=== PATIENT | female | born 1965 | race Caucasian/White ===

== ENCOUNTER 2016-12-17 16:57 | Emergency (ER) | payer OTHER ==
[~2016-12-17] VITALS: Wt 107.0 kg
[2016-12-17] MEDS ORDERED: METHYLPREDNISOLONE 125 MG INJ IM ONE (19:00)
[2016-12-17] MEDS ORDERED: DIPHENHYDRAMINE 50 MG INJ IM ONE (19:00)
[2016-12-17] MEDS ORDERED: BEN50 PO (19:04)
[2016-12-17] MEDS ORDERED: PRED20TA PO (19:04)
--- NOTE | 2016-12-17 19:15 | ERD ---
ER Documentation Chief Complaint Date/Time DATE: 12/17/16 TIME: 19:13 Chief Complaint generalized rash for the past few days. possible chemical reaction HPI This is a 51-year-old female with a past medical history of diabetes type 2 on metformin presenting to the emergency room complaining of a generalized rash on her abdomen and chest for 3 days. Patient states that it occurred after she used a new type of detergent. She explains the rash as very itchy and causing redness. She has not tried any medications for this. Patient denies fevers. Denies any chest pain or shortness of breath ROS All systems reviewed and are negative except as per history of present illness. Medications Home Meds Active Scripts Diphenhydramine Hcl* (Benadryl*) 50 Mg Cap, 50 MG PO Q6H Y for ITCHING/RASH, # 30 CAP Prov:JAYDA CHAVARRIA PA-C 12/17/16 Prednisone* (Prednisone*) 20 Mg Tab, 40 MG PO DAILY for 4 Days, TAB Prov:JAYDA CHAVARRIA PA-C 12/17/16 Allergies Allergies: Coded Allergies: No Known Allergy (Unverified , 12/17/16) PMhx/Soc History of Surgery: Yes (hernia repair) Anesthesia Reaction: No Hx Neurological Disorder: No Hx Respiratory Disorders: No Hx Cardiac Disorders: No Hx Psychiatric Problems: No Hx Miscellaneous Medical Probl: No (DM, bulging disk.) Hx Alcohol Use: No Hx Substance Use: No Smoking Status: Current every day smoker Physical Exam Vitals Vital Signs Date Time Temp Pulse Resp B/P Pulse Ox O2 Delivery O2 Flow Rate FiO2 12/17/16 17:05 98.0 91 20 137/77 98 Physical Exam General: WD/WN, in no apparent distress, non-toxic appearing HENT: NC/AT Eyes: Conjunctiva normal Neck: Supple Pulm: Clear to auscultation, normal labored breathing; no wheezing/rales/ rhonchi heard CV: Good capillary refill GI: Non-distended, no guarding Back: No masses Ext: No clubbing, cyanosis, or edema Neuro: Moves on all fours Skin: Erythematous papular rash throughout trunk and abdomen Normal turgor, temperature. No ulcerations \ Psych: Normal mood Results 24 hrs Current Medications Medications (Trade) Dose Ordered Sig/Zach Route PRN Reason Start Time Stop Time Status Last Admin Dose Admin Methylprednisolone Sodium Succinate (Solu-Medrol) 125 mg ONCE ONCE IM 12/17/16 19:00 12/17/16 19:01 DC 12/17/16 19:06 Diphenhydramine HCl (Benadryl) 50 mg ONCE ONCE IM 12/17/16 19:00 12/17/16 19:01 DC 12/17/16 19:06 Procedures/MDM This is a 51-year-old female with past medical history diabetes type 2 presenting to the emergency room with a generalized dermatitis on trunk and abdomen most likely due to 2 neurologic reaction. Patient had a low suspicion for anaphylaxis, she is breathing well on room air. There was no evidence of cellulitis or osteomyelitis or the pendulous. In the ED, patient was given 125 mg Solu-Medrol and Benadryl 50 mg IM. Patient had some improvement. Patient given a prescription for prednisone for the next 4 days and Benadryl to take every 6 hours. I discussed with patient to watch her blood sugars due to her diabetes. I discussed her to the ER for any worsening sinuses. Patient understands and agrees with plan. Departure Diagnosis: Primary Impression: Allergic reaction Encounter type: initial encounter Qualified Code: T78.40XA - Allergic reaction, initial encounter Condition: Stable Patient Instructions: First Aid: Allergic Reactions, Dermatitis, Non-Specific, Hives Referrals: your doctor Additional Instructions: FOLLOW UP WITH YOUR PRIMARY CARE PHYSICIAN TOMORROW.Return to this facility if you are not improving as expected. Take all medicines as directed. Return to this facility if you are not improving as expected. You have been given a medicine which may cause drowsiness.DO NOT DRIVE OR OPERATE DANGEROUS MACHINERY while taking this medicine! JAYDA CHAVARRIA PA-C Dec 17, 2016 19:15
== END 2016-12-17 19:26 | disposition home or self-care (01) ==
LOC: FTE 16:57
DX: R21 Rash and other nonspecific skin eruption (principal); E11.9 Type 2 diabetes mellitus without complications; F17.210 Nicotine dependence, cigarettes, uncomplicated; Z79.84 Long term (current) use of oral hypoglycemic drugs
CPT/HCPCS: J1200; J2930; 96372

== ENCOUNTER 2017-01-01 08:50 | Emergency (ER) | payer OTHER ==
[~2017-01-01] VITALS: Wt 100.0 kg
[~2017-01-01 08:50] MED LIST: BEN50 PO; PRED20TA PO
[2017-01-01] MEDS ORDERED: DEXAMETHASONE 10 MG/ML 1 ML INJ IM ONE (10:00)
[2017-01-01] MEDS ORDERED: DIPHENHYDRAMINE 50 MG INJ IM ONE (10:00)
--- NOTE | 2017-01-01 10:10 | ERD ---
ER Documentation Chief Complaint Date/Time DATE: 01/01/17 TIME: 10:08 Chief Complaint RASH SINCE LAST WEEK. WENT AWAY AND CAME BACK NO SOB NOTED HPI This patient is a 51-year-old female with history of type 2 diabetes presenting to the emergency department for intermittent rash to her trunk for the past 1.5 weeks. The patient states she was exposed to a new type of soap and then the rash broke out. The rash resolved but then returned within the past 2 days. The patient reports pruritus. She denies any wheezing or shortness of breath. There have been no fevers or chills. No other signs or symptoms to report at this time. ROS All systems reviewed and are negative except as per history of present illness. Medications Home Meds Active Scripts Diphenhydramine Hcl* (Benadryl*) 25 Mg Cap, 25 MG PO Q6, #20 CAP Prov:BING ARAUZ PA-C 01/01/17 Methylprednisolone* (Medrol* DOSE PACK) 4 Mg/Dose-Pack Tab.ds.pk, 4 MG PO . DIRECTED, #1 PACKET Prov:BING ARAUZ PA-C 01/01/17 Diphenhydramine Hcl* (Benadryl*) 50 Mg Cap, 50 MG PO Q6H Y for ITCHING/RASH, # 30 CAP Prov:JAYDA CHAVARRIA PA-C 12/17/16 Prednisone* (Prednisone*) 20 Mg Tab, 40 MG PO DAILY for 4 Days, TAB Prov:JAYDA CHAVARRIA PA-C 12/17/16 Allergies Allergies: Coded Allergies: No Known Allergy (Unverified , 12/17/16) PMhx/Soc History of Surgery: Yes (hernia repair) Anesthesia Reaction: No Hx Neurological Disorder: No Hx Respiratory Disorders: No Hx Cardiac Disorders: No Hx Psychiatric Problems: No Hx Miscellaneous Medical Probl: No (DM, bulging disk.) Hx Alcohol Use: No Hx Substance Use: No FmHx Noncontributory for chief complaint Physical Exam Vitals Vital Signs Date Time Temp Pulse Resp B/P Pulse Ox O2 Delivery O2 Flow Rate FiO2 01/01/17 08:53 97.2 88 20 116/64 98 Physical Exam INITIAL VITAL SIGNS: Reviewed by me. GENERAL: Alert and interactive. No acute distress. HEAD: Head is normocephalic and atraumatic. EYES: EOMI. No scleral icterus. No conjunctival injection. ENT: Moist mucosa. NECK: Supple. Full range of motion. RESPIRATORY: Normal respiratory effort. Clear breath sounds bilaterally. No wheezing, rales, or rhonchi. CV: Regular rate and rhythm. Normal S1 S2. No S3 or S4. No murmurs. ABDOMEN: Soft, non-distended, non-tender. No guarding. No rebound. No masses. EXTREMITIES: No deformity. SKIN: Nonvesicular macular papular rash to the torso and upper extremities bilaterally. NEUROLOGIC: Alert and oriented x 4. Speech is normal. Moves all extremities equally. No motor or sensory deficits noted. Results 24 hrs Current Medications Medications (Trade) Dose Ordered Sig/Zach Route PRN Reason Start Time Stop Time Status Last Admin Dose Admin Dexamethasone (Decadron) 10 mg ONCE ONCE IM 01/01/17 10:00 01/01/17 10:01 DC 01/01/17 10:10 Diphenhydramine HCl (Benadryl) 25 mg ONCE ONCE IM 01/01/17 10:00 01/01/17 10:01 DC 01/01/17 10:10 Procedures/MDM 51-year-old female presenting secondary to complaints of pruritus and urticaria of the torso and bilateral upper extremities. On physical examination the patient does have a macular papular rash to the torso and bilateral upper extremities. The patient has no wheezing or shortness of breath or retractions. There are no signs of respiratory distress. I treated the patient in the department with IM Decadron and IM Benadryl. The patient was feeling improved after treatment. The patient was given prescriptions to be treated as an outpatient for acute allergic reaction. The patient was advised to return to the department immediately should she have any new or worsening symptoms. The patient demonstrates understanding of her ED course and discharge plan. All questions and concerns were addressed. The patient was hemodynamically stable prior to discharge. Departure Diagnosis: Primary Impression: Rash and other nonspecific skin eruption Condition: Stable Patient Instructions: Self-Care for Skin Rashes Referrals: [facility] Additional Instructions: Follow-up with your primary care physician within 1 week. Return to the emergency department immediately should you have any new or worsening symptoms, uncontrolled fevers, or other unexplained symptoms. Take all medications as directed. BING ARAUZ PA-Cb 3, 2017 10:09
[2017-01-01] MEDS ORDERED: MED4DP PO (10:25)
[2017-01-01] MEDS ORDERED: BEN25 PO (10:25)
== END 2017-01-01 10:57 | disposition home or self-care (01) ==
LOC: FTE 08:50
DX: R21 Rash and other nonspecific skin eruption (principal); E11.9 Type 2 diabetes mellitus without complications
CPT/HCPCS: 96372; J1100; J1200; Z7502

== ENCOUNTER 2017-01-11 13:57 | Emergency (ER) | payer OTHER ==
[~2017-01-11] VITALS: Wt 100.0 kg
[~2017-01-11 13:57] MED LIST changes: +BEN25 PO; +MED4DP PO
--- NOTE | 2017-01-11 15:12 | ERD ---
ER Documentation Chief Complaint Date/Time DATE: 01/11/17 TIME: 14:50 Chief Complaint RASH FOR THE PAST FEW 3 DAYS AGO . NO STRIDOR OR SOB NOTED. HPI 51 y/o female presents to ED for rashes below her breast and left first upper molar tooth pain. Stated that she was here 2 weeks ago and a week ago for complaint of rashes to her below breast and was given/prescribed with prednisone and Benadryl. Denies headache, loss of consciousness, dizziness, blurry vision, changes in vision, photophobia, facial pain, ear pain, throat pain, difficulty swallowing, neck pain, shoulder pain, chest pain, cough, hemoptysis, abdominal pain, back pain, loss of appetite, nausea, vomiting, hematochezia, diarrhea, constipation, urinary symptoms, bladder and bowel incontinences, extremity weakness, extremity tenderness, numbness or tingling sensation, difficulty walking, recent travel, recent exposure to illness, recent antibiotic use in the last 3 months, fever, chills. Allergy: NKA PMH: Diabetes, asthma, bronchitis. Family medical history: Denies. Medications: [place], [place], morphine, pro-air. Surgery: Denies. Primary Social History: On disability. Smokes 1 pack of cigarettes a day. Denies use of alcohol, use of illegal drugs. ROS All systems reviewed and are negative except as per history of present illness. Medications Home Meds Active Scripts Diphenhydramine Hcl* (Benadryl*) 25 Mg Cap, 25 MG PO Q6, #20 CAP Prov:BING ARAUZ PA-C 01/01/17 Methylprednisolone* (Medrol* DOSE PACK) 4 Mg/Dose-Pack Tab.ds.pk, 4 MG PO . DIRECTED, #1 PACKET Prov:BING ARAUZ PA-C 01/01/17 Diphenhydramine Hcl* (Benadryl*) 50 Mg Cap, 50 MG PO Q6H Y for ITCHING/RASH, # 30 CAP Prov:JADYA CHAVARRIA PA-C 12/17/16 Prednisone* (Prednisone*) 20 Mg Tab, 40 MG PO DAILY for 4 Days, TAB Prov:JAYDA CHAVARRIA PA-C 12/17/16 Allergies Allergies: Coded Allergies: No Known Allergy (Unverified , 12/17/16) PMhx/Soc History of Surgery: No Anesthesia Reaction: No Hx Neurological Disorder: No Hx Respiratory Disorders: No Hx Cardiac Disorders: No Hx Psychiatric Problems: No Hx Miscellaneous Medical Probl: No Hx Alcohol Use: No Hx Substance Use: No Hx Tobacco Use: No Physical Exam Vitals Vital Signs Date Time Temp Pulse Resp B/P Pulse Ox O2 Delivery O2 Flow Rate FiO2 01/11/17 14:03 97.8 71 20 158/84 98 Physical Exam CONSTITUTIONAL: Well-appearing; well-nourished; in no apparent distress. HEAD: Normocephalic; atraumatic. EYES: Conjunctiva clear, sclera non-icteric, EOM intact. PERRL Ears: Hearing intact. EACs clear, TMs non-bulging, non-inflamed, translucent & mobile, ossicles normal appearance, No obstructions, no erythema, no discharges Nose: No obstructions. No polyps. No external lesions. Mucosa non-inflamed. No external lesions, septum and turbinates normal. No rhinorrhea. No discharges. Frontal sinus is non-tender to palpation. Maxillary sinus is non-tender to palpation. MOUTH: Moist mucous membranes, no lesion, no obstructions, no vesicles, no thrush, patent airway. Left upper first molar tooth decay/gum swelling with tenderness. Intact. Throat: Uvula in midline. Right tonsil is +1 with no erythema, no exudate. Left tonsil is +1 with no erythema, no exudate. Tolerating secretions well. Good gag reflex. Patent airway. Neck: Supple, without lesions, bruits, or adenopathy. No mass. Thyroid non- enlarged and non-tender to palpation. CHEST: Symmetrical chest. Respirations even and not labored. No retractions noted. CARDIOVASCULAR: Normal S1, S2. RRR. No murmurs, gallops. RESPIRATORY: Normal chest excursion with respiration; breath sounds clear and equal bilaterally; no wheezes, rhonchi, or rales. Breathing even and unlabored. Speaking in clear, full, and complete sentences w/ ease. ABDOMEN: Normal bowel sounds normal. Soft, round, non-distended, non-guarding, no tenderness, no rebound, no organomegaly, no masses, no pulsating abdominal mass. No hernia. No peritoneal signs. : No CVA tenderness. BACK: Symmetrical shoulder. Spine is midline without deformity, tenderness. No evidence of trauma or deformity. PELVIS: Stable pelvis. No evidence of trauma or deformity. MUSCULOSKELETAL: Normal gait and station. No misalignment, asymmetry, crepitation, defects, tenderness, masses, effusions, decreased range of motion, instability, atrophy or abnormal strength or tone in the head, neck, spine, ribs , pelvis or extremities. No calf tenderness. NEUROVASCULAR: Distal pulses are present. Pedal pulse are present, equal, and normal. Capillary refills are < 2 seconds. NEUROLOGIC: Alert and oriented x4. Speaks full and clear sentences. Cranial Nerves II-XII normal. Sensation to pain, touch, and proprioception normal. Grossly unremarkable. No neurologic deficits. Romberg test is negative. PSYCHOLOGICAL: The patients mood and manner are appropriate. No hallucinations , delusions. Not SI. Not HI. Has the capacity to decide for self SKIN: Normal for age and ethnicity; warm; dry; good turgor; no apparent lesions or exudates. No hives, discoloration. Noted satellite lesions to bilateral folds of breasts. Patient stated that it was itchy. Procedures/MDM Examination: Please see physical examination. Disease process, medical treatment was explained to the patient and family member. They verbalized understanding and agreed with the diagnostic tests, medical treatment, and follow-up care. Treatment: None. Re-evaluation: No throat swelling. No airway obstruction. No shortness of breath. Lungs are clear to auscultations. Consultation: None. Differential diagnosis: Tooth abscess versus sinusitis; rash versus candidiasis Medical decision makin51 y/o female presents to ED for rashes below her breast and left first upper molar tooth pain. Stated that she was here 2 weeks ago and a week ago for complaint of rashes to her below breast and was given/ prescribed with prednisone and Benadryl. Patient's complaint, patient's history , my physical findings are consistent with my final diagnosis of toothache, rash. Medications prescribed are the following: Penicillin. Nystatin cream. Patient and family member are made aware of the side effects and adverse reactions of the medications prescribed. Instructed on when to seek emergent and medical attention in case allergic/anaphylactic reactions or severe side effects and or adverse reactions to medications. Patient and family member verbalized understanding. Patient instructed Instructed to follow-up with his PCP in 24-48 hours. Instructed to Call 911 for chest pain, shortness of breath. Advised to come back here in ED as soon as possible for severity of symptoms which includes but not limited to: any new symptoms; shortness of breath/difficulty of breathing; cardiovascular changes; severe gastrointestinal symptoms; signs and symptoms of bleeding and or infection; signs of compartment syndrome/neurovascular changes; neurological changes/deficits. Patient and family member verbalized understanding. Upon discharge, patient is alert and oriented x 4, speaks full and clear sentences, denies pain, has no neurological deficits, has no neurovascular deficits, difficulty of breathing. Breathing even and unlabored. Lung sounds are clear to auscultation. Not in distress. Appears comfortable. Ambulatory with steady gait. Appears satisfied with care provided here in ED. Departure Diagnosis: Primary Impression: Rash Additional Impression: Tooth ache Condition: Good Additional Instructions: Follow-up with PCP in the next 24-48 hours. ZEB HARRISON Jan 11, 2017 15:12
[2017-01-11] MEDS ORDERED: NYST15CR28 TOP (15:13)
[2017-01-11] MEDS ORDERED: PEN500 PO (15:13)
[2017-01-11 15:28] VITALS: BP 124/61; PULSE 58; RESP 16; TEMP 98.2
== END 2017-01-11 15:29 | disposition home or self-care (01) ==
LOC: FTE 13:57
DX: R21 Rash and other nonspecific skin eruption (principal); K08.89 Other specified disorders of teeth and supporting structures; E11.9 Type 2 diabetes mellitus without complications; J45.909 Unspecified asthma, uncomplicated
CPT/HCPCS: 99284

== ENCOUNTER 2017-01-14 14:33 | Emergency (ER) | payer OTHER ==
[~2017-01-14] VITALS: Wt 90.9 kg
[~2017-01-14 14:33] MED LIST changes: +NYST15CR28 TOP; +PEN500 PO
[2017-01-14] MEDS ORDERED: HYDR-842 PO (16:04)
[2017-01-14] MEDS ORDERED: FLUC50TA PO (16:04)
--- NOTE | 2017-01-14 16:10 | ERD ---
ER Documentation Chief Complaint Date/Time DATE: 01/14/17 TIME: 16:08 Chief Complaint unresolved rash x2 wks despite meds HPI Pleasant female who presents to the emergency room with a rash for approximately 2 months. The patient has been here now for times for this rash. 2 of which she was treated for allergic reaction, most recently she was treated with nystatin cream for Elizabeth. She describes a itchy raised rash with satellite lesions in the skin folds along the bra line of her chest and underneath her breasts. She is a diabetic and her sugars have been well controlled. She denies any fevers or chills but she does describe persistence of this rash. ROS All systems reviewed and are negative except as per history of present illness. Medications Home Meds Active Scripts Fluconazole* (Fluconazole*) 50 Mg Tablet, 50 MG PO DAILY for 14 Days, TAB Prov:JIM COLLINS MD 01/14/17 Hydroxyzine Hcl* (Atarax*) 25 Mg Tab, 25 MG PO QID Y for ITCHING, #30 TAB Prov:JIM COLLINS MD 01/14/17 Nystatin* (Nystatin*) 15 Gm Cr, 1 APPLIC TOP TID for 7 Days, TUB Prov:PASILABANKLAR F 01/11/17 Penicillin V Potassium* (Penicillin V K*) 500 Mg Tab, 500 MG PO QID for 10 Days , TAB Prov:PASILABAN,KLAR F 01/11/17 Diphenhydramine Hcl* (Benadryl*) 25 Mg Cap, 25 MG PO Q6, #20 CAP Prov:BING ARAUZ PA-C 01/01/17 Methylprednisolone* (Medrol* DOSE PACK) 4 Mg/Dose-Pack Tab.ds.pk, 4 MG PO . DIRECTED, #1 PACKET Prov:BING ARAUZ PA-C 01/01/17 Diphenhydramine Hcl* (Benadryl*) 50 Mg Cap, 50 MG PO Q6H Y for ITCHING/RASH, # 30 CAP Prov:JAYDA CHAVARRIA PA-C 12/17/16 Prednisone* (Prednisone*) 20 Mg Tab, 40 MG PO DAILY for 4 Days, TAB Prov:JAYDA CHAVARRIA PA-C 12/17/16 Allergies Allergies: Coded Allergies: No Known Allergy (Unverified , 12/17/16) PMhx/Soc History of Surgery: No Anesthesia Reaction: No Hx Neurological Disorder: No Hx Respiratory Disorders: No Hx Cardiac Disorders: No Hx Psychiatric Problems: No Hx Miscellaneous Medical Probl: No Hx Alcohol Use: No Hx Substance Use: No Hx Tobacco Use: Yes Smoking Status: Never smoker FmHx Family History: diabetes Physical Exam Vitals Vital Signs Date Time Temp Pulse Resp B/P Pulse Ox O2 Delivery O2 Flow Rate FiO2 01/14/17 14:34 97.9 101 20 12/76 97 Physical Exam General: Well developed, well nourished, no acute distress Head: Normocephalic, atraumatic. Eyes: EOM intact ENT: Moist mucous membranes Neck: Full ROM Respiratory: No respiratory distress Cardiovascular: Good capillary refil Abdominal: Nondistended : Deferred MSK: No edema, no unilateral swelling, 5/5 strength Neurologic: Alert and oriented, moving all extremities, normal speech, steady gait Skin: Erythematous rash with satellite lesions on the anterior chest, underneath the breasts and in the skin folds of the upper abdomen Psych: Normal mood Procedures/MDM The patient rash is very consistent with intertrigo secondary to Elizabeth. She has no evidence of systemic illness. I do not believe this is consistent with urticaria or allergic reaction. This has been present for 2 months despite adequate treatment. The patient had topical antifungal with no relief. At this time I believe advancement to systemic antifungal would be reasonable. First-line therapy would be fluconazole 50 mg daily for 2-6 weeks. We will start with 2 weeks and the patient can follow-up with her primary care physician and follow-up with dermatology, referral provided. Systemic antihistamines for itching would be reasonable. We discussed follow up with the patient's primary care doctor within 24 to 48 hours as needed. We also discussed return to the emergency room for worsening symptoms or worsening condition. Discharge Medications: Fluconazole 50 mg daily 14 days, Atarax Departure Diagnosis: Primary Impression: Candidal intertrigo Condition: Stable Patient Instructions: Elizabeth Skin Infection (Adult) Referrals: JULIA BOLTON MD [facility] YOU HAVE RECEIVED A MEDICAL SCREENING EXAM AND THE RESULTS INDICATE THAT YOU DO NOT HAVE A CONDITION THAT REQUIRES URGENT TREATMENT IN THE EMERGENCY DEPARTMENT. FURTHER EVALUATION AND TREATMENT OF YOUR CONDITION CAN WAIT UNTIL YOU ARE SEEN IN YOUR DOCTORS OFFICE WITHIN THE NEXT 1-2 DAYS. IT IS YOUR RESPONSIBILITY TO MAKE AN APPOINTMENT FOR FOLOW-UP CARE. IF YOU HAVE A PRIMARY DOCTOR --you should call your primary doctor and schedule an appointment IF YOU DO NOT HAVE A PRIMARY DOCTOR YOU CAN CALL OUR PHYSICIAN REFERRAL HOTLINE AT IF YOU CAN NOT AFFORD TO SEE A PHYSICIAN YOU CAN CHOSE FROM THE FOLLOWING [facility] [address] [facility] [address] [facility] [facility] [address] [facility] [address] [facility]. [facility] [address] [facility] [facility] [address] [facility] [facility] YOU HAVE RECEIVED A MEDICAL SCREENING EXAM AND THE RESULTS INDICATE THAT YOU DO NOT HAVE A CONDITION THAT REQUIRES URGENT TREATMENT IN THE EMERGENCY DEPARTMENT. FURTHER EVALUATION AND TREATMENT OF YOUR CONDITION CAN WAIT UNTIL YOU ARE SEEN IN YOUR DOCTORS OFFICE WITHIN THE NEXT 1-2 DAYS. IT IS YOUR RESPONSIBILITY TO MAKE AN APPOINTMENT FOR FOLOW-UP CARE. IF YOU HAVE A PRIMARY DOCTOR --you should call your primary doctor and schedule and appointment IF YOU DO NOT HAVE A PRIMARY DOCTOR YOU CAN CALL OUR PHYSICIAN REFERRAL HOTLINE AT . IF YOU CAN NOT AFFORD TO SEE A PHYSICIAN YOU CAN CHOSE FROM THE FOLLOWING [facility] INSTITUTIONS: [facility] [address] [place] [address] [facility] [address] [place] [address] [facility] [address] [place] [address] Additional Instructions: Call your primary care doctor TOMORROW for an appointment during the next 1 WEEK.Tell the front office secretary that you were referred from this facility.See the doctor sooner or return here if your condition worsens before your appointment time. JIM COLLINS MD Jan 14, 2017 16:10
== END 2017-01-14 16:30 | disposition home or self-care (01) ==
LOC: FTE 14:33
DX: B37.2 Candidiasis of skin and nail (principal); E11.9 Type 2 diabetes mellitus without complications; Z87.891 Personal history of nicotine dependence
CPT/HCPCS: 99284

== ENCOUNTER 2018-01-14 19:39 | Emergency (ER) | END 2018-01-15 03:01 | disposition home or self-care (01) ==

== ENCOUNTER 2019-02-06 16:23 | Emergency (ER) | payer OTHER ==
[~2019-02-06] VITALS: Ht 167.6 cm; Wt 110.8 kg
[~2019-02-06 16:23] MED LIST changes: +ALBU8.5H8 INH; +BENZ-6 PO; +FLUC50TA PO; +HYDR-842 PO; +LEVO500T48 PO; -PEN500 PO; +PENI500T PO
[2019-02-06 16:29] VITALS: Ht 167.6 cm; Wt 110.8 kg
--- NOTE | 2019-02-06 18:52 | ERD ---
ER Documentation Chief Complaint Chief Complaint Complains of left thumb pain since this am HPI This is a 53-year-old female presents ED with left thumb pain status post shutting a door on it yesterday. Patient admits to some painful range of motion and some bruising along the dorsal left thumb. Denies any decreased range of motion, tingling, numbness, lack sensation, fever, chills. States that she takes morphine at home for her back pain. ROS All systems reviewed and are negative except as per history of present illness. Medications Home Meds Active Scripts Benzonatate* (Tessalon Perle*) 100 Mg Capsule, 100 MG PO Q8H PRN for COUGH, #14 CAP Prov:PASILAMIRANDAZEB 01/15/18 Prednisone* (Prednisone*) 20 Mg Tab, 60 MG PO DAILY for 5 Days, TAB Prov:ZEB HARRISON 01/15/18 Albuterol Sulfate* (Proair HFA*) 8.5 Gm Hfa.aer.ad, 2 PUFF INH Q4, #1 INHALER Prov:LEONIDMIRANDAZEB Morelos 01/15/18 Levofloxacin* (Levaquin*) 500 Mg Tablet, 500 MG PO DAILY for 7 Days, TAB Prov:ZEB HARRISON 01/15/18 Fluconazole* (Fluconazole*) 50 Mg Tablet, 50 MG PO DAILY for 14 Days, TAB Prov:JIM COLLINS MD 01/14/17 Hydroxyzine Hcl* (Atarax*) 25 Mg Tab, 25 MG PO QID PRN for ITCHING, #30 TAB Prov:JIM COLLINS MD 01/14/17 Nystatin* (Nystatin*) 15 Gm Cr, 1 APPLIC TOP TID for 7 Days, TUB Prov:CHRISTYZEB Tamy 01/11/17 Penicillin V Potassium* (Penicillin V K*) 500 Mg Tab, 500 MG PO QID for 10 Days, TAB Prov:RUTHKARUNAZEB F 01/11/17 Diphenhydramine Hcl* (Benadryl*) 25 Mg Cap, 25 MG PO Q6, #20 CAP Prov:BING ARAUZ PA-C 01/01/17 Methylprednisolone* (Medrol* DOSE PACK) 4 Mg/Dose-Pack Tab.ds.pk, 4 MG PO . DIRECTED, #1 PACKET Prov:BING ARAUZ PA-C 01/01/17 Diphenhydramine Hcl* (Benadryl*) 50 Mg Cap, 50 MG PO Q6H PRN for ITCHING/RASH, #30 CAP Prov:JAYDA CHAVARRIA PA-C 12/17/16 Prednisone* (Prednisone*) 20 Mg Tab, 40 MG PO DAILY for 4 Days, TAB Prov:JAYDA CHAVARRIA PA-C 12/17/16 Allergies Allergies: Coded Allergies: No Known Allergy (Unverified , 12/17/16) PMhx/Soc History of Surgery: No Anesthesia Reaction: No Hx Neurological Disorder: No Hx Respiratory Disorders: No Hx Cardiac Disorders: No Hx Psychiatric Problems: No Hx Miscellaneous Medical Probl: No Hx Alcohol Use: No Hx Substance Use: Yes (marijuana) Hx Tobacco Use: Yes (1 pack per day) Smoking Status: Never smoker FmHx Family History: No diabetes Physical Exam Vitals Vital Signs Date Temp Pulse Resp B/P (MAP) Pulse Ox O2 O2 Flow FiO2 Time Delivery Rate 02/06/19 98.1 76 20 163/103 96 16:29 (123) Physical Exam Const: No acute distress Head: Atraumatic Eyes: Normal Conjunctiva ENT: Normal External Ears, Nose and Mouth. Neck: Full range of motion. No meningismus. Resp: Clear to auscultation bilaterally Cardio: Regular rate and rhythm, no murmurs Ext: No cyanosis, or edema Upper Extremity - bilateral: Skin: There is some bruising along the left dorsal thumb Compartments: Soft Motor: Full active range of motion shoulder/elbow/wrist/hand Sensation: Intact shoulder/pinky/middle finger/thumb web space Bones: Nontender humerus/elbow/forearm/wrist/hand Snuffbox: Nontender Joints: No effusion Pulses/Perfusion: 2+ radial, Capillary refill < 2 seconds Radial ulnar median nerve tested for sensory and motor function with no deficit Neur: Awake and alert Psych: Normal Mood and Affect Procedures/MDM EKG, MONITORS, & DIAGNOSTIC IMAGING: [address] [address] Radiology Main Line: [phone] DIAGNOSTIC IMAGING REPORT Patient: LAINE PEREZ : 1965 Age: 53 Sex: F MR #: [id number] [facility] #: [id number] DOS: 02/06/19 1836 Ordering MD: OLU MCCABE PA-C Location: [facility] Room/Bed: PROCEDURE: XR Finger. CLINICAL INDICATION: PAIN TECHNIQUE: Three views of the left thumb finger. COMPARISON: None. FINDINGS: No acute fracture detected. No dislocation. Moderate degenerative joint disease at the interphalangeal joint with joint space narrowing marginal osteophyte formation. Diffuse soft tissue swelling. No foreign body. IMPRESSION: Soft tissue swelling without evidence of acute fracture or dislocation. Moderate degenerative joint disease at the interphalangeal joint. RPTAT: HRGF Mikayla Baron Physician Date Time Electronically viewed and signed by Mikayla Baron Physician on 02/06/2019 19:39 RF/ CC: OLU MCCABE PA-C [id number] ER COURSE: The patient was offered medication for pain but patient states that she has been taking her morphine for her pain. The patient was stable throughout ED course. I kept the patient and/or family informed of laboratory and diagnostic imaging results throughout the emergency room course. The patient was promptly evaluated and a treatment plan was devised based on H&P and other data. This plan was discussed with the patient who agreed and had no further questions or concerns prior to discharge. MEDICAL DECISION MAKING: This is a 53-year-old female presents ED with a crush injury of her left thumb. X-rays are unremarkable. Physical examination shows some bruising along the left dorsal thumb but it is otherwise unremarkable. This is likely just a finger sprain/contusion. History and physical examination other data not consis tent with emergent processes including but not limited to fracture, dislocation, tendon rupture, ischemia, neurovascular injury, compartment syndrome, septic joint, avascular necrosis, osteomyelitis, necrotizing fasciitis, septic joint, septic arthritis, or other emergent conditions. Patient's vitals are stable and can be managed outpatient with close follow-up. Advised patient to follow-up with primary care in the next 48 hours. Return to ED with any worsening symptoms. DISPOSITION PLAN: We discussed follow up with the patient's primary care doctor within 24 to 48 hours. Patient counseled regarding my diagnostic impression and care plan. Prior to discharge all questions answered. Pt agrees with treatment plan and understands strict return precautions. Precautionary instructions provided including instructions to return to the ER if not improving or for any worsening or changing symptoms or concerns. SPECIALIST FOLLOW UP RECOMMENDED: None Patient has been advised to follow up with primary care in 1-2 days. Disclaimer: Inadvertent spelling and grammatical errors are likely due to EHR/dictation software use and do not reflect on the overall quality of patient care. Also, please note that the electronic time recorded on this note does not necessarily reflect the actual time of the patient encounter. Blood Pressure Assessment: Patient's blood pressure was elevated (>120/80) but appears stable without evidence of hypertension emergency or urgency. The patient was counseled about the risks of hypertension and urged to pursue outpatient monitoring and therapy within a week with their primary care physician. Departure Diagnosis: Primary Impression: Finger injury Encounter type: initial encounter Laterality: left Qualified Codes: S69.92XA - Unspecified injury of left wrist, hand and finger(s), initial encounter Additional Impression: Contusion of thumb, left Encounter type: initial encounter Damage to nail status: without damage Q ualified Codes: S60.012A - Contusion of left thumb without damage to nail, initial encounter Condition: Stable Patient Instructions: Crush Injury, Hand/Finger, Sprain Finger Referrals: COMM[facility]ITY [facility]ICS Additional Instructions: Patient advised to return to the ED immediately for new or worsening symptoms. Patient advised to follow up with primary care provider in the next 24-48 hours. Patient verbalized understanding and agrees with treatment plan and course of action. If patient has no primary care they may follow up with one of the community clinics listed on the following page or one of the options listed below [facility] + [facility] [address] [place] [address] or [facility] [address] [place] [address] or [facility] [address] [place] [address] OLU MCCABE PA-C Feb 06, 2019 18:52
[2019-02-06 20:01] VITALS: BP 142/90; PULSE 62; RESP 19
== END 2019-02-06 20:02 | disposition home or self-care (01) ==
LOC: FTE 16:23
DX: S60.012A Contusion of left thumb without damage to nail, initial encounter (principal); X58.XXXA Exposure to other specified factors, initial encounter; Y92.9 Unspecified place or not applicable; Z87.891 Personal history of nicotine dependence
CPT/HCPCS: 73140; Z7502

== ENCOUNTER 2019-08-15 22:00 | Emergency (ER) | payer OTHER ==
[~2019-08-15] VITALS: Ht 162.6 cm; Wt 110.7 kg
[2019-08-15 22:28] VITALS: Ht 162.6 cm; Wt 110.7 kg
[2019-08-16 01:38] VITALS: BP 138/82; PULSE 80; RESP 20
== END 2019-08-16 01:40 | disposition home or self-care (01) ==
LOC: E/R 22:00
DX: R25.1 Tremor, unspecified (principal); F17.210 Nicotine dependence, cigarettes, uncomplicated; E11.9 Type 2 diabetes mellitus without complications
CPT/HCPCS: 80053; 84484; 85025; 93005; Z7502